=== PATIENT | male | born 1970 | race Hispanic/Latino ===

== ENCOUNTER 2019-06-05 19:45 | Emergency (ER) | payer SELFPAY ==
[2019-06-05] MEDS ORDERED: diazePAM INJ 10 MG/2 ML SYG IV ONE ×2 (20:09→20:12)
--- NOTE | 2019-06-05 20:16 | ED.PDOC ---
History of Present Illness - General Chief Complaint: Neck Injury/Pain Stated Complaint: right side neck pain, and hadache, left hand pain Time Seen by Provider: 06/05/19 19:59 Source: patient, RN notes reviewed, Vital Signs reviewed - History of Present Illness Initial Comments: 49-year-old male presents to the emergency department complaining of 8 days of right-sided headache with progressive right-sided neck pain onset today. Hurts over the last several days he has had a headache located in the right temporal area and today reports right-sided neck pain with significant pain with movement. The pain is on the right side of his neck and if he tries to turn his head he gets pain in his left hand as well. He denies any numbness or weakness. She is not having any chest pain or shortness of breath. He denies any significant past medical history. He initially thought that his headache might be related to his blood pressure which has been elevated in the past but they've just been monitoring and he does not take any medication for currently. He denies any associated nausea or vomiting and no fever or chills. Pain is currently rated 8/10 in severity and is significantly worse with movement. He is taking [id number] Tylenol at home without significant improvement in symptoms. Home Medications: Ambulatory Orders Naproxen [Naproxen EC] 500 mg PO Q12H PRN #20 tab 06/05/19 Orphenadrine Citrate [Orphenadrine Citrate ER] 100 mg PO Q12HR PRN #20 tab 06/05/19 Review of Systems - Review of Systems Constitutional: Denies: chills, fever EENTM: Denies: double vision, nose congestion, throat pain Respiratory: Denies: cough, short of breath Cardiology: Denies: chest pain, edema, palpitations Gastrointestinal/Abdominal: Denies: nausea, vomiting Genitourinary: Denies: dysuria, frequency Musculoskeletal: States: muscle pain - r neck, neck pain Skin: Denies: lesions, rash Neurological: States: headache - r sided, paresthesia - L hand. Denies: numbness, weakness Past Medical History (General) - Patient Medical History Hx Seizures: No Hx Stroke: No Hx Dementia: No Hx Asthma: No Hx of COPD: No Hx Cardiac Disorders: No Hx Congestive Heart Failure: No Hx Pacemaker: No Hx Hypertension: No Hx Thyroid Disease: No Hx Diabetes: No Hx Gastroesophageal Reflux: No Hx Renal Disease: No Hx Cancer: No Hx of HIV: No Hx Hepatitis C: No Hx MRSA: No Surgical History: no surgical history - Vaccination History Hx Tetanus, Diphtheria Vaccination: No Hx Influenza Vaccination: No Hx Pneumococcal Vaccination: No Immunizations Up to Date: No - Social History Hx Tobacco Use: No Hx Chewing Tobacco Use: No Hx Alcohol Use: No Hx Substance Use: No Hx Substance Use Treatment: No Hx Depression: No Feels Threatened In Home Enviroment: No Feels Threatened In a Relationship: No Hx Physical Abuse: No Hx Emotional Abuse: No Hx Suspected Abuse: No - Activities of Daily Living Hospice Agency (if applicable):: None - Female History Patient is a Female of Child Bearing Age (10 -59 yrs old): No Family Medical History - Family History Mother Family History: No Known Physical Exam - Physical Exam General Appearance: Alert, Well Developed, Well Nourished Eye Exam: bilateral normal Ears, Nose, Throat: normal ENT inspection, normal pharynx Neck: normal inspection, limited range of motion - due to spasm, other - paraspinal tenderness and spasm on the R Respiratory: lungs clear, normal breath sounds, no respiratory distress Cardiovascular/Chest: normal peripheral pulses, regular rate, rhythm Peripheral Pulses: radial,right: 2+, radial,left: 2+ Gastrointestinal/Abdominal: normal bowel sounds, non tender, soft Back Exam: normal inspection Extremity: other - decreased ROM R arm because shoulder movement causes pain in R neck Neurologic: pugger helper II-XII nml as tested, no motor/sensory deficits, alert Skin Exam: normal color, warm/dry Comments: Vital Signs (72 hours) 06/05/19 19:55 Temperature 97.9 F Pulse Rate [ 97 H pulse ox] Respiratory 20 Rate Blood Pressure 157/107 [Left Arm] O2 Sat by Pulse 99 Oximetry Progress - Progress Progress: 06/05/19 21:18 Patient recheck: All lab and imaging results were discussed with the patient and family at the bedside. He is resting comfortably after IV Valium in the emergency department. I discussed with the patient think it is most likely cervical muscle spasm which is causing his neck pain and headache. I recommended that we continue treatment at home with anti-inflammatories and muscle relaxants. He is also advised to take a couple days off work and rest. He hasn't encouraged to use ice and heat as needed and frequent massage of the muscles. He is encouraged to follow up with his primary care physician as soon as possible and to return to the emergency department for any significant wor sening of symptoms or other concerns. I discussed with him that if the symptoms do not improve he may ultimately need an MRI to evaluate his symptoms. The patient and his at the bedside who voiced understanding and agreeable to treatment plan and all questions and concerns are addressed. - Results/Orders Results/Orders: CT Head: IMPRESSION: No acute intracranial abnormality. 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 There is no acute fracture or subluxation. The prevertebral soft tissues are within normal limits. IMPRESSION: No acute fracture or subluxation. Electronically signed by: Toni Joy 06/05/2019 9:15 PM [facility] [employer] Workstation: [id number] 06/05/19 20:08 IV Care:Saline Lock per Protoc QSHIFT Laboratory Results - last 24 hr 06/05/19 06/05/19 20:20 20:20 WBC 6.9 RBC 5.38 Hgb 16.6 Hct 47.6 MCV 88.4 MCH 30.8 MCHC 34.8 RDW 13.2 Plt Count 191 MPV 8.8 Absolute Neuts (auto) 4.40 Absolute Lymphs (auto) 1.80 Absolute Monos (auto) 0.50 Absolute Eos (auto) 0.10 Absolute Basos (auto) 0.10 Neutrophils % 64.2 Lymphocytes % 25.8 Monocytes % 7.7 Eosinophils % 1.2 Basophils % 1.1 Sodium 136 Potassium 3.4 L Chloride 102 Carbon Dioxide 23 Anion Gap 14.4 BUN 19 H Creatinine 0.76 BUN/Creatinine Ratio 25.0 H Random Glucose 115 H Serum Osmolality 275.1 Calcium 9.2 Total Bilirubin 1.7 H AST 27 ALT 34 Alkaline Phosphatase 67 Serum Total Protein 7.6 Albumin 4.6 Globulin 3.0 Albumin/Globulin Ratio 1.5 Departure - Departure Clinical Impression: Cervical strain, acute Qualifiers: Encounter type: initial encounter Qualified Code(s): S16.1XXA - Strain of muscle, fascia and tendon at neck level, initial encounter Headache Qualifiers: Headache type: unspecified Headache chronicity pattern: acute headache Intractability: not intractable Qualified Code(s): R51 - Headache Disposition: Discharge to Home or Self Care Condition: Good Departure Forms: ED Discharge - Pt. Copy, Patient Portal Self Enrollment Instructions: DI for Cervical Muscle Strain, Headache, Adult Referrals: [facility] [Provider Group] - 1-5 Days Prescriptions: Orphenadrine Citrate [Orphenadrine Citrate ER] 100 mg PO Q12HR PRN #20 tab PRN Reason: Pain Naproxen [Naproxen EC] 500 mg PO Q12H PRN #20 tab PRN Reason: Pain Home Medications: Ambulatory Orders Naproxen [Naproxen EC] 500 mg PO Q12H PRN #20 tab 06/05/19 Orphenadrine Citrate [Orphenadrine Citrate ER] 100 mg PO Q12HR PRN #20 tab 06/05/19 Additional Instructions: Take medications as directed. Use ice and heat as needed to help with symptoms. Follow up with the [facility] to establish primary care physician. Return to the emergency department for any significant worsening of symptoms or other concerns.
--- NOTE | 2019-06-05 21:11 | CT ---
EXAM DESCRIPTION: Head CLINICAL HISTORY: neck pain COMPARISON: None Available TECHNIQUE: Contiguous axial CT images of the head were obtained. Coronal and sagittal reconstructions were created from the axial data. This exam was performed according to our departmental dose-optimization program, which includes automated exposure control, adjustment of the mA and/or kV according to patient size and/or use of iterative reconstruction technique. FINDINGS: There is no evidence of acute mass, mass effect, midline shift or hemorrhage. The ventricles and extra-axial CSF spaces are unremarkable. The brain parenchyma appears normal for the patient's age. No acute abnormalities of the bones is seen. IMPRESSION: No acute intracranial abnormality. Electronically signed by: Toni Joy 06/05/2019 9:09 PM [facility]
--- NOTE | 2019-06-05 21:16 | CT ---
EXAM DESCRIPTION: CT CERVICAL SPINE CLINICAL HISTORY: neck pain COMPARISON: None Available. TECHNIQUE: Contiguous axial images of the cervical spine were obtained followed by reconstruction images.This exam was performed according to our departmental dose-optimization program, which includes automated exposure control, adjustment of the mA and/or kV according to patient size and/or use of iterative reconstruction technique. 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 There is no acute fracture or subluxation. The prevertebral soft tissues are within normal limits. IMPRESSION: No acute fracture or subluxation. Electronically signed by: Toni Joy 06/05/2019 9:15 PM [facility] [place]
[2019-06-05] MEDS ORDERED: KETOROLAC TROMETHAMINE INJ 30 MG/ML VIAL IV ONE (21:29)
[2019-06-05 22:33] VITALS: BP 133/93; TEMP 98; O2SAT 98
== END 2019-06-05 22:00 | disposition home or self-care (01) ==
LOC: ER 19:45
DX: S16.1XXA Strain of muscle, fascia and tendon at neck level, initial encounter (principal); R51 Headache; X58.XXXA Exposure to other specified factors, initial encounter; Y92.9 Unspecified place or not applicable
CPT/HCPCS: 36415; 70450; 72125; 80053; 85025; J1885; J3360